=== PATIENT | male | born 1965 | race Caucasian/White ===

== ENCOUNTER 2018-12-24 05:40 | Day surgery (SDC) | payer OTHER ==
[~2018-12-24] VITALS: Ht 172.7 cm; Wt 63.5 kg
[2018-12-24] MEDS ORDERED: MOBIC7.5 MG PO (05:51)
[2018-12-24] MEDS ORDERED: ZYRTEC10 M3 PO (05:52)
[2018-12-24] MEDS ORDERED: CELEXA40 MG PO (05:52)
--- NOTE | 2018-12-24 08:02 | NUR ---
12/24/18 0802 Lillian Gao 2908 PT ARRIVED IN PACU SLEEPY WITH TRANSPORT GUARD AT BEDSIDE. R HAND ELEVATED ON PILLOW WITH ICE PRESENT. 0800 PT AWAKE. OXYGEN REMOVED. SATS 99% ON RA.
--- NOTE | 2018-12-26 07:16 | OR ---
[facility] [address] [place], [place] [address] Signed DATE OF OPERATION: 12/24/2018 SURGEON: Micheal Nice MD PREOPERATIVE DIAGNOSIS: Trigger finger, right long. POSTOPERATIVE DIAGNOSIS: Trigger finger, right long. PROCEDURE PERFORMED: Release of A1 axel, right long finger. ANESTHESIA: Dolores block. SPECIMENS: No specimens. COMPLICATIONS: No complications. TOURNIQUET TIME: About 20 minutes. WHAT WAS DONE: The patient was taken to the operating room. After dolores block was administered, the patient was positioned, prepped, and draped in a routine sterile fashion. A transverse incision was made over the MCP flexion crease to the right long finger. The skin was divided sharply. Subcutaneous tissue was bluntly spread. We then used the tip of the 15 blade to release the A1 axel and then placed right angle retractors radially, ulnarly, and distally. We then released the rest of the A1 axel under direct vision. We then reversed the distal retractor, placed proximally into the retrograde release of the axel until the entire axel had been released. At this point, there was a free excursion of the long finger without any catching or triggering. The wound was gently irrigated and closed in a standard fashion. Sterile dressings applied. The patient was awakened and taken to the recovery room, where he arrived in stable condition. Counts were correct and antibiotic protocols were followed. Electronically Signed By: MICHEAL NICE MD 12/26/18 0716 PATIENT NAME: KARENA AMAYA OPERATIVE REPORT DATE OF : 65 REPORT #: [id number] PHYSICIAN: MICHEAL NICE MD PCP: REED FREDERICK MD REPORT IS CONFIDENTIAL AND NOT TO BE RELEASED WITHOUT AUTHORIZATION [address] [place], [place] [address] Signed Micheal Nice MD WFB/MODL /[id number] Copies: ~ Electronically Signed By: MICHEAL NICE MD 12/26/18 0716 PATIENT NAME: KARENA AMAYA OPERATIVE REPORT DATE OF : 65 REPORT #: [id number] PHYSICIAN: MICHEAL NICE MD PCP: REED FREDERICK MD REPORT IS CONFIDENTIAL AND NOT TO BE RELEASED WITHOUT AUTHORIZATION
== END 2018-12-24 08:20 | disposition home or self-care (01) ==
LOC: DS 05:40 → OPS 05:40
PROVIDERS: Orthopaedic Surgery
PROC: 0LN70ZZ Release Right Hand Tendon, Open Approach (ICD-10-PCS; principal; 2018-12-24 06:45)
DX: M65.331 Trigger finger, right middle finger (principal); Z79.899 Other long term (current) drug therapy; Z87.891 Personal history of nicotine dependence
CPT/HCPCS: 01810; J0690; J1100; J1885; J2250; J2405; J2704; J7120

== ENCOUNTER 2019-09-06 16:44 | Emergency (ER) | payer OTHER ==
[~2019-09-06] VITALS: Ht 172.7 cm; Wt 63.5 kg
[~2019-09-06 16:44] MED LIST: CELEXA40 MG PO; MOBIC7.5 MG PO; ZYRTEC10 M3 PO
[2019-09-06] MEDS ORDERED: MELOXICAM7.5 MG PO (16:58)
== END 2019-09-06 17:38 | disposition home or self-care (01) ==
LOC: ED 16:44
PROC: 0HQEXZZ Repair Left Lower Arm Skin, External Approach (ICD-10-PCS; principal; 2019-09-06)
DX: S51.812A Laceration without foreign body of left forearm, initial encounter (principal); K21.9 Gastro-esophageal reflux disease without esophagitis; Z79.899 Other long term (current) drug therapy; X78.8XXA Intentional self-harm by other sharp object, initial encounter
CPT/HCPCS: 12002; 99282-25